=== PATIENT | male | born 1970 | race Caucasian/White ===

== ENCOUNTER 2020-11-06 08:45 | Outpatient (CLI) | payer BC, SELFPAY ==
--- NOTE | ~2020-11-06 | XR_ITS ---
EXAMINATION: XR chest 2V EXAM DATE: 11/06/2020 10:20 INDICATION: SOB on exertion. COVID in August with lingering cough. TECHNIQUE: Frontal and lateral projections of the chest obtained and reviewed. Comparison is made to prior examination from 03/06/07. FINDINGS: The lungs are clear. There are no pleural effusions. The cardiomediastinal silhouette is within normal limits. There is no pneumothorax suspected. The bones and soft tissues are unremarkab le. IMPRESSION: No acute cardiopulmonary findings. Reviewed, dictated and finalized at location A.
--- NOTE | 2020-11-06 08:56 | ECHO_ITS ---
Patient Info Name: Beka Gomez Age: 50 years : 1970 Gender: Male Ht: 72 in Wt: 185 lbs BSA: 2.07 m2 HR: 65 bpm BP: 118 / 72 mmHg Technical Quality: Good Exam Date: 11/06/2020 9:06 AM Exam Location: [facility] Patient Status: Outpatient Admit Date: 11/06/2020 Staff Ordering Physician: Edmond Robles MD Shirt Creaser: Stefany Izquierdo RDCS Attending Provider: Edmond Robles MD Referring Physician: Margaret LEBLANC; Exam Type: CA echo doppler color flow Study Info Indications - DANG CARDIAC MURMUR Complete two-dimensional, color flow and Doppler transthoracic echocardiogram is performed. Summary 1. Complete two-dimensional, color flow and Doppler transthoracic echocardiogram is performed. 2. Left ventricular chamber dimension is normal. 3. Left ventricular systolic function is normal, estimated at 50-55%. 4. The left ventricular diastolic function is normal. 5. E/e' 7 is not elevated. 6. Global longitudinal strain is normal at -17.7%. 7. There is trace tricuspid valve regurgitation. 8. No pulmonary hypertension, estimated pulmonary arterial systolic pressure is 22 mmHg. Left Ventricle E/e' 7 is not elevated. Global longitudinal strain is normal at -17.7%. Left ventricular chamber dimension is normal. Left ventricular systolic function is normal, estimated at 50-55%. The left ventricular diastolic function is normal. Right Ventricle Right ventricular chamber dimension is normal. Right ventricular systolic function is normal. Left Atria Left atrial chamber dimension is normal. Right Atria Right atrial chamber dimension is normal. Aortic Valve The aortic valve is trileaflet. There is no aortic valve stenosis. There is no aortic valve regurgitation. Pulmonic Valve There is no pulmonic regurgitation. Mitral Valve There is no mitral valve stenosis. There is no mitral valve regurgitation. Tricuspid Valve There is trace tricuspid valve regurgitation. No pulmonary hypertension, estimated pulmonary arterial systolic pressure is 22 mmHg. Pericardium/Pleural There is no pericardial effusion. Inferior Vena Cava Normal inferior vena cava with >50% collapse upon inspiration consistent with normal right atrial pressure, 5 mmHg. Aorta The aortic root size at the sinus of Valsalva is normal. Left Ventricular Outflow Tract Name Value Normal LVOT 2D LVOT Diameter 2.0 cm LVOT Doppler LVOT Peak Gradient 3 mmHg LVOT Mean Gradient 2 mmHg LVOT VTI 20 cm LVOT VTI/AV VTI Ratio 0.8 LVOT Stroke Volume 62 ml LVOT CO 12.0 l/min LVOT CI 5.8 l/min/m2 Pulmonic Valve Name Value Normal PV Doppler
--- NOTE | 2020-11-06 08:56 | EST_ITS ---
Patient Info Name: Beka Gomez Age: 50 years : 1970 Gender: Male Ht: 72 in Wt: 185 lbs BSA: 2.07 m2 Exam Date: 11/06/2020 9:41 AM Exam Location: [facility] Patient Status: Outpatient Admit Date: 11/06/2020 Staff Ordering Physician: Edmond Robles MD Attending Provider: Edmond Robles MD Exercise Technologist: Dixie German CT Exercise Physician: Aaron Wallace DO Exam Type: CA stress test treadmill Study Info A treadmill exercise stress test was performed. Summary 1. 1. Negative Ramón exercise stress test for ischemic ST changes by ECG criteria. 2. 2. Good functional capacity, achieving 10 METs of workload. 3. 3. Appropriate HR response to exercise. 4. 4. Appropriate HR recovery at 1 minute post exercise. 5. 5. No imaging with stress testing. 6. 6. Patient informed of the above results. Protocol: Ramón Stress ECG Details Stage: REST Duration (min): 0 min : 56 sec Speed (mph): 0.0 Grade (%): 0 HR (bpm): 66 SBP (mmHg): 129 DBP (mmHg): 81 METS: --- Stage: REST Duration (min): 9 min : 35 sec Speed (mph): 0.0 Grade (%): 0 HR (bpm): 71 SBP (mmHg): 129 DBP (mmHg): 81 METS: --- Stage: STAGE 1 Duration (min): 1 min : 0 sec Speed (mph): 1.7 Grade (%): 10 HR (bpm): 109 SBP (mmHg): 129 DBP (mmHg): 81 METS: --- Stage: STAGE 1 Duration (min): 2 min : 0 sec Speed (mph): 1.7 Grade (%): 10 HR (bpm): 111 SBP (mmHg): 129 DBP (mmHg): 81 METS: --- Stage: STAGE 1 Duration (min): 3 min : 0 sec Speed (mph): 1.7 Grade (%): 10 HR (bpm): 113 SBP (mmHg): 137 DBP (mmHg): 86 METS: --- Stage: STAGE 2 Duration (min): 1 min : 0 sec Speed (mph): 2.5 Grade (%): 12 HR (bpm): 125 SBP (mmHg): 137 DBP (mmHg): 86 METS: --- Stage: STAGE 2 Duration (min): 2 min : 0 sec Speed (mph): 2.5 Grade (%): 12 HR (bpm): 129 SBP (mmHg): 121 DBP (mmHg): 84 METS: --- Stage: STAGE 2 Duration (min): 3 min : 0 sec Speed (mph): 2.5 Grade (%): 12 HR (bpm): 130 SBP (mmHg): 121 DBP (mmHg): 84 METS: --- Stage: STAGE 3 Duration (min): 1 min : 0 sec Speed (mph): 3.4 Grade (%): 14 HR (bpm): 152 SBP (mmHg): 138 DBP (mmHg): 82 METS: --- Stage: STAGE 3 Duration (min): 2 min : 0 sec Speed (mph): 3.4 Grade (%): 14 HR (bpm): 161 SBP (mmHg): 138 DBP (mmHg): 82 METS: --- Stage: STAGE 3 Duration (min): 3 min : 0 sec Speed (mph): 3.4 Grade (%): 14 HR (bpm): 167 SBP (mmHg): 130 DBP (mmHg): 80 METS: --- Stage: RECOVERY Duration (min): 0 min : 59 sec Speed (mph): 0.0 Grade (%): 0 HR (bpm): 132 SBP (mmHg): 130 DBP (mmHg): 80 METS: --- Stage: RECOVERY Duration (min): 1 min : 59 sec Speed (mph): 0.0 Grade (%): 0 HR (bpm): 100
== END 2020-11-06 08:46 | disposition home or self-care (01) ==
PROVIDERS: PCP Family Medicine; Visit Provider Family Medicine
DX: R01.1 Cardiac murmur, unspecified (principal); R06.00 Dyspnea, unspecified
CPT/HCPCS: 71046; 93017; 93306

== ENCOUNTER 2021-12-29 06:33 | Outpatient (CLI) | payer BC, SELFPAY ==
--- NOTE | ~2021-12-29 | MR_ITS ---
EXAMINATION: MR brain/brain stem wo/w con DATE: 12/29/2021 08:08 INDICATION: New-onset right-sided trigeminal neuralgia, V3 branch auricular temporal nerve distributi on. TECHNIQUE: Magnetic resonance imaging (MRI) of the brain, brainstem, and internal auditory canals was performed without and with 17 mL MultiHance intravenous contrast. COMPARISON: Head CT 03/06/2007 FINDINGS: There are scattered areas of nonspecific increased T2-weighted signal intensity in the cere bral white matter. There is no intracranial hemorrhage, acute infarction, or abnormal intracranial ma ss lesion. The ventricles are normal in size. Right trigeminal nerve is normal. Left superior cerebel lar artery abuts the root entry zone of left trigeminal nerve without mass effect. There is mild muco satinder thickening in the paranasal sinuses. The orbits are normal. The internal auditory canals and inne r and middle ears are normal. There are trace mastoid effusions. IMPRESSION: 1. No etiology for right-sided trigeminal neuralgia. No right-sided vascular loop compression. 2. Mild nonspecific cerebral white matter disease, which likely represents chronic small vessel ische luisito disease. Reviewed, dictated and finalized at location A. IMPRESSION: 1. No etiology for right-sided trigeminal neuralgia. No right-sided vascular lo op compression. 2. Mild nonspecific cerebral white matter disease, which likely represents director of sustainable design orlin small vessel ischemic disease.
[2021-12-29 07:34] LABS: Estimated Glomerular Filt Rate > 60
== END 2021-12-29 06:34 | disposition home or self-care (01) ==
PROVIDERS: PCP Family Medicine; Visit Provider Family Medicine
DX: G50.0 Trigeminal neuralgia (principal)
CPT/HCPCS: 70553; A9577

== ENCOUNTER 2024-02-14 07:40 | Day surgery (SDC) | payer OTHER, SELFPAY ==
[2023-11-20 08:10] VITALS: BMI 29.9
[2024-01-30 14:51] VITALS: BMI 27.0
[2024-02-14 08:50] VITALS: BP 114/69; PULSE 66; RESP 18; TEMP 36.8; O2SAT 96; BMI 25.9
[2024-02-14] MEDS: LACTATED RINGERS 1,000 ML 150 ML IV CONT (08:50)
--- NOTE | 2024-02-14 09:23 | WPDANESEPPF ---
Anes - Initial Pre Proc Eval Procedure: Operation Date: 02/14/24 10:00 Proposed Procedures p Screening Colonoscopy - Bijan Barney MD Date/Time: 02/14/24 09:23 Surgeon: Bijan Barney MD Pre Op Diagnosis: Screening for neoplasm of colon Patient Data Age: 53 Gender: M Height: 1.83 m Weight: 86.75 kg Last Vital Signs Temp 36.8 C 02/14/24 08:50 Pulse 66 02/14/24 08:50 Resp 18 02/14/24 08:50 BP 114/69 02/14/24 08:50 Pulse Ox 96 02/14/24 08:50 O2 Del Method Room Air 02/14/24 08:50 Allergies Allergy/AdvReac Type Severity Reaction Status Date / Time No Known Allergies Allergy Unknown Verified 02/14/24 08:47 Home Medications Medication Instructions Recorded Confirmed Type multivitamin (Multiple Vitamins 1 tablet PO DAILY 10/26/22 02/14/24 History tablet) Patient hx anesthesia problems: none Family hx anesthesia problems: none Results Review: All pre-operative results and documents have been reviewed as part of the pre-operative evaluation. [facility] Past Medical History Medical History BMI 28.0-28.9,adult BMI 29.0-29.9,adult BMI 30.0-30.9,adult COVID-19 (09/04/20) Dyspnea on exertion normal chest x-ray, echo, and exercise stress test on 11/06/2020 Elevated PSA, less than 10 ng/ml PSA elevated at 4.60 on 10/23/2023( 3.72, 1.59, 1.8, 1.2, 1.3) Encounter for wellness examination in adult Family history of coronary artery disease in father Heart murmur Trace tricuspid regurgitation on echo on 11/06/2020 Obesity (BMI 30.0-34.9) Overweight (BMI 25.0-29.9) Polyp of colon (12/14/18) Benign colon polyp on 12/14/2018 with recheck in 5 years. Seasonal allergic rhinitis Stye Trigeminal neuralgia of right side of face (12/11/21) right V3 branch, auricular temporal nerve distribution Surgical History Surgical History History of arthroscopic knee surgery History of bunionectomy History of hip surgery Family History Family History Grandparent Diabetes mellitus Family history of cardiovascular disease, Onset Age: 55 Acute myocardial infarction, Onset Age: 55 Family history of congestive heart failure, Onset Age: 62 Mother Family history of cardiovascular disease Acute myocardial infarction Family history of arthritis Family history of renal cell carcinoma Father Family history of cardiovascular disease Acute myocardial infarction Social History Social History Smoking status: Never smoker Alcohol intake: never Substance use: never Substance use type: does not use Lack of Transportation: No Lack of Food: Never True Current Housing: I Have Housing Concerned About Future Housing: No Difficulty Paying Gas/Electric Bills: No Difficulty Paying for Meds: No Currently Unemployed: No Education: Trade/Vocational Certificate Difficulty w/ Childcare or Family Care: No Living arrangements: with family Occupation/Education: occupation Gender identity (if verbalized by the patient): Male Spiritual care concerns: No Anes - Eval Final PreProcedure Day of Procedure 02/14/24 09:23 Patient weight: normal Heart: regular rate and rhythm Lungs: clear to auscultation Airway: Mallampati scale class II Neurological: alert and oriented Last oral intake: >/= 8 hours ASA classification: I Emergent: no Anesthetic plan: proceed Anesthesia type and monitoring: general GIVS and standard monitoring Results Review: All pre-operative results and documents have been reviewed as part of the pre-operative evaluation. Informed Consent: The patient's anesthetic plan and its attendant risks and benefits were discussed with the patient/family/POA. Questions were solicited and answers provided to the satisfaction of the patien
--- NOTE | 2024-02-14 09:26 | PM.HPGS ---
History of Present Illness History of Present Illness Consent: Risks, benefits, and alternatives have been discussed and questions answered. Patient agrees to proceed with procedure. Chief complaint: History of colon polyps Narrative: Beka Gomez is a 53 year old male presents for screening colonoscopy. Patient's current weight appetite and bowel movements are normal. Patient is abdominal pain. He has had no bleeding. Family history noncontributory. Patient reports having had polyps at time of previous endoscopy 5 years ago. Review of Systems Review of Systems: All systems reviewed & are unremarkable except as noted in HPI and below PMFSH Past Medical History Medical History BMI 28.0-28.9,adult BMI 29.0-29.9,adult BMI 30.0-30.9,adult COVID-19 (09/04/20) Dyspnea on exertion normal chest x-ray, echo, and exercise stress test on 11/06/2020 Elevated PSA, less than 10 ng/ml PSA elevated at 4.60 on 10/23/2023( 3.72, 1.59, 1.8, 1.2, 1.3) Encounter for wellness examination in adult Family history of coronary artery disease in father Heart murmur Trace tricuspid regurgitation on echo on 11/06/2020 Obesity (BMI 30.0-34.9) Overweight (BMI 25.0-29.9) Polyp of colon (12/14/18) Benign colon polyp on 12/14/2018 with recheck in 5 years. Seasonal allergic rhinitis Stye Trigeminal neuralgia of right side of face (12/11/21) right V3 branch, auricular temporal nerve distribution Surgical History Surgical History History of arthroscopic knee surgery History of bunionectomy History of hip surgery Family History Family History Grandparent Diabetes mellitus Family history of cardiovascular disease, Onset Age: 55 Acute myocardial infarction, Onset Age: 55 Family history of congestive heart failure, Onset Age: 62 Mother Family history of cardiovascular disease Acute myocardial infarction Family history of arthritis Family history of renal cell carcinoma Father Family history of cardiovascular disease Acute myocardial infarction Social History Social History Smoking status: Never smoker Alcohol intake: never Substance use: never Substance use type: does not use Lack of Transportation: No Lack of Food: Never True Current Housing: I Have Housing Concerned About Future Housing: No Difficulty Paying Gas/Electric Bills: No Difficulty Paying for Meds: No Currently Unemployed: No Education: Trade/Vocational Certificate Difficulty w/ Childcare or Family Care: No Living arrangements: with family Occupation/Education: occupation Gender identity (if verbalized by the patient): Male Spiritual care concerns: No Meds Home Medications and Allergies Home Medications Medication Instructions Recorded Confirmed Type multivitamin (Multiple Vitamins 1 tablet PO DAILY 10/26/22 02/14/24 History tablet) Allergies Allergy/AdvReac Type Severity Reaction Status Date / Time No Known Allergies Allergy Unknown Verified 02/14/24 08:47 Vital Signs Vital Signs - 24 hr 02/14/24 08:50 Temperature 98.2 F Pulse Rate 66 Respiratory Rate 18 Blood Pressure 114/69 Pulse Oximetry 96 Oxygen Delivery Room Air Exam Narrative: Physical exam reveals patient to be alert stable. HEENT exam is unremarkable. Patient is anicteric. Lungs are clear to auscultation and percussion. Heart is without murmur or extra sounds. Abdomen bowel sounds are present soft nontender with no hepatosplenomegaly. Digital external rectal exam is normal. Assessment and Plan Assessment and plan (1) Polyp of colon: Onset Date: 12/14/18 Qualifiers: Colon polyp type: unspecified Colon location: unspecified part of colon Qualified Code(s): K63.5 - Polyp
[2024-02-14 10:35] VITALS: BP 110/66; PULSE 84; RESP 16; O2SAT 99
[2024-02-14 10:45] VITALS: BP 107/65; PULSE 65; RESP 16; O2SAT 99
[2024-02-14 10:56] VITALS: BP 111/66; PULSE 69; RESP 16; O2SAT 99
--- NOTE | 2024-02-14 10:57 | WPDANESPN ---
Anes - Prog Note Post-Op Date/Time: 02/14/24 10:57 Cardiovascular status: normal Respiratory status: normal Airway patency: baseline Mental status: baseline Post-Op hydration status: normal Vital Signs: Last Vital Signs Temp 36.8 C 02/14/24 08:50 Pulse 69 02/14/24 10:56 Resp 16 02/14/24 10:56 BP 111/66 02/14/24 10:56 Pulse Ox 99 02/14/24 10:56 O2 Del Method Room Air 02/14/24 10:56 Pain Score (VAS): 0/10 I/O: Intake & Output 02/13/24 02/14/24 02/14/24 23:59 07:59 15:59 Intake Total 0 Balance 0 Patient Feedback: Patient satisfied with anesthetic care.
== END 2024-02-14 11:03 | disposition home or self-care (01) ==
PROVIDERS: PCP Family Medicine; Visit Provider Internal Medicine Gastroenterology
PROC: 0DJD8ZZ Inspection of Lower Intestinal Tract, Via Natural or Artificial Opening Endoscopic (ICD-10-PCS; CPT 45378; principal; 2024-02-14 10:00)
DX: Z86.010 Personal history of colon polyps (principal); K64.8 Other hemorrhoids
CPT/HCPCS: 45378